=== PATIENT | female | born 1965 | race Caucasian/White ===

== ENCOUNTER → 2021-04-01 07:04 | Outpatient (CLI) | payer BC, SELFPAY ==
[2021-04-01 08:16] LABS: Add Manual Diff / Slide Review NO; Basophils Absolute Auto 0 /uL (0-100); Basophils Percent Auto 0.8 % (0-2); Eosinophils Absolute Auto 200 /uL (0-450); Eosinophils Percent Auto 4.2 % (2-4); Hematocrit 39.2 % (36-46); Hemoglobin 12.8 g/dL (12.0-16.0); Lymphocytes Absolute Auto 1400 /uL (1100-4500); Lymphocytes Percent Auto 26.3 % (25-40); Mean Corpuscular HGB Conc 32.5 % (30-36); Mean Corpuscular Hemoglobin 29.2 PG (26-34); Mean Corpuscular Volume 89.6 fL (80-100); Monocytes Absolute Auto 500 /uL (0-900); Monocytes Percent Auto 9.3 % (3-14); Neutrophils Absolute Auto 3200 /uL (1500-7000); Neutrophils Percent Auto 59.4 % (50-75); Platelet Count 218 X10^3/uL (150-400); Red Blood Cell Count 4.37 X10^6/uL (4.0-5.2); Red Cell Distribution Width 13.9 % (11.6-14.8); White Blood Cell Count 5.5 X10^3/uL (4.5-11.0)
[2021-04-01 08:37] LABS: Hemoglobin A1C% w Est Avg Glu 5.6 % (4.0-6.0)
[2021-04-01 08:52] LABS: Alanine Aminotransferase 23 IU/L (<35); Albumin 4.2 g/dL (3.5-5.0); Albumin Globulin Ratio 1.4 (1.0-2.8); Alkaline Phosphatase 64 U/L (38-126); Aspartate Aminotransferase 38 IU/L (14-36); BUN Creatinine Ratio 18.8 (6-22); Bilirubin Total 0.8 mg/dL (0.2-1.3); Blood Urea Nitrogen 13 mg/dL (7-17); Calcium 8.9 mg/dL (8.4-10.2); Carbon Dioxide 29 mmol/L (22-32); Chloride 104 mmol/L (98-107); Cholesterol 209 mg/dL (140-199); Estimated Glomerular Filt Rate > 60.0 mL/min (>60); Globulin 3.1 g/dL (1.7-4.1); Glucose 86 mg/dL (70-100); HDL Cholesterol 68 mg/dL (40-60); HEMOLYSIS < 15 (0-50); LDL Cholesterol Calculated 123 mg/dL (<100); Potassium 4.1 mmol/L (3.4-5.1); Sodium 138 mmol/L (137-145); Total Protein 7.3 g/dL (6.3-8.2); Triglycerides 88 mg/dL (35-150)
[2021-04-01 09:09] LABS: TSH w/ Reflex to FT4 3.14 uIU/mL (0.47-4.68)
--- OUTSIDE RECORDS SUMMARY | 2021-05-16 08:51 | XMS_ITS | Referral Summary ---
:1965 Author Organization Address [address] [place] [id number] Care Team Providers Name Role Phone Guillaume Holden Primary Care Provider Reason for Referral Consultation (Routine) - Authorized Specialty Diagnoses / Procedures Referred By Contact Refer red To Contact Diagnoses Mild persistent asthma without complication Lisa Lake, [facility] Procedures Complete PFT with DLCO [address] [facility] [address] [place] [address] [place] [phone] Phone: Referral ID Status Reason Start Date Expiration Date Visits V isits Requested Authorized [id number] Authorized 05/02/2021 04/27/2022 1 1 Reason for Visit Reason Comments Asthma Consultation (Routine) - Closed Specialty Diagnoses / Procedures Referred By Contact Refer red To Contact Pulmonology Diagnoses Unspecified asthma, uncomplicated Guillaume Holden ARNP [facility] Pulmonology [address] [place] [address] [place], [place] [id number] [place] [phone] Phone: Fax: Referral ID Status Reason Start Date Expiration Date Visits Requ ested Visits Authorized [id number] Closed 03/29/2021 03/24/2022 1 1 Encounter Details Date Type Department Care Team Description 05/02/2021 Office Visit [facility] Lisa Lake persi stent asthma Clinics Pulmonology D., DO without complication [place] [address] [place] (Primary Dx) [address] [place] [id number] Allergies Active Allergy Reactions Severity Noted Date Comments Sulfa (Sulfonamide Antibiotics) Rash Low 1 documented as of this encounter (statuses as of 05/13/2021) Medications Medication Sig Dispensed Refills Start Date End Date Status escitalopram 10 mg daily 0 04/18/2021 Acti ve (LEXAPRO) 10 mg tablet fluticasone Inhale 1 puff daily 0 Active propion-salmeteroL Rinse mouth with (ADVAIR DISKUS) water after use to 100-50 mcg/dose reduce aftertaste diskus inhaler and incidence of candidiasis. Do not swallow. albuterol HFA Inhale 2 puffs 0 A ctive (ProAir) 90 every 6 (six) hours mcg/actuation inhaler as needed for wheezing Hospital, Clinic, Ordered Route Frequency Start End Date [facility] or Other Facility Dose Date Administered Medication pneumococcal 0.5 mL IM During 05/02/20 Discont inued polysaccharide hospitalization 1 21 (PNEUMOVAX 23) 25 mcg/0.5 mL vaccine 0.5 mL documented as of this encounter (statuses as of 05/13/2021) Active Problems Problem Noted Date Mild persistent asthma without complication 05/02/2021 documented as of this encounter (statuses as of 05/13/2021) Immunizations Name Administration Dates Next Due Influenza, Quadrivalent 05/19/2020 [id number] Vaccine 10/20/2020, 09/29/2020 Pneumococcal Conjugate PCV13 ([id number]) 05/02/2021, 021 documented as of this encounter Social History Tobacco Use Types Packs/Day Years Used Date Passive Smoke Exposure - Never Smoker Cigarettes 18 Smokeless Tobacco: Never Used Alcohol Use Standard Drinks/Week Comments Yes 4 (1 standard drink = 0.6 oz pure alcoho l) Sex Assigned at Date Recorded Female 04/13/2021 3:02 PM PDT Job Start Date Occupation Industry Not on file Not on file Not on file documented as of this encounter Last Filed Vital Signs Vital Sign Reading Time Taken Comments Blood Pressure 104/69 05/02/2021 2:54 PM PDT Pulse 63 05/02/2021 2:54 PM PDT Temperature 36.9 ??C (98.4 ??F) 05/02/2021 2:54 PM PDT Respiratory Rate - - Oxygen Saturation 98% 05/02/2021 2:54 PM PDT Inhaled Oxygen Concentration - - Weight 78.3 kg (172 lb 9.6 oz) 05/02/2021 2:54 PM PDT Height 180.3 cm (5' 11) 05/02/2021 2:54 PM PDT Body Mass Index 24.07 05/02/2021 2:54 PM PDT documented in this encounter Progress Notes Lisa Lake DO - 05/02/2021 3:00 PM PDT Peak flow goal 330-450 L/min Use the Wixela as needed for now Use the Albuterol as a rescue inhaler (quick acting) If you have not heard from [facility] about scheduling your PFTs by the end of next week, call our office. Follow up after PFTs Get the influenza vaccine GREEN (80 to 100 percent of personal best) signals all clear. When readings are within this range and symptoms are not present, the patient is advised to adhere to his or her regular maintenance regimen. YELLOW (50 to 80 percent of personal best) signals caution, since the airways are somewhat obstructed. The patient should implement the treatment plan decided upon with the clinician to reverse airway narrowing and regain control [29]. The wide range represented by the yellow zone can be subdivided above and below the 65 percent level if desired. RED (below 50 percent of personal best) signals medical alert. Bronchodilator therapy should be started immediately, and the clinician should be contacted if PEF measures do not return immediately tothe yellow or green zones. isa Lake DO - 05/02/2021 3:00 PM PDT OUTPATIENT PULMONARY CONSULTATION NOTE Date of service: 05/02/21 IMPRESSION and RECOMMENDATIONS: SHAMA SANCHEZ is a 55 y.o. female is being seen as an initial consultation at the request of STACEY Bustos. She presents to the pulmonary clinic for evaluation of asthma. Diagnosis Plan 1. 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 We will request records. PFTs ordered, would like performed at [facility] -Currently well controlled. She is using Wixela on an as-needed basis and rarely needs her albuterol. We discussed a stepwise approach to the treatment of asthma, and while her symptoms are in the mild intermittent category, depending on what her PFTs show she may be more severe which would require a djustment of her medication dose and or frequency. -Contributing factors and triggers include environmental smoke. We discussed trigger avoidance. -Most recent exacerbation was over 5 years ago. -Peak flow meter discussed and provided. Goal 330???450 L/min -Asthma action plan discussed -Discussed importance of COVID, influenza and pneumonia vaccinations. Will get influenza vaccine this fall. Will give pneumovax today. Up to date on Covid vaccine. -Follow up after PFTs. SUBJECTIVE: Chief Concern: Chief Complaint Patient presents with ??? Asthma History of present illness: Shama Sanchez is a 55 y.o. female with past medical history significant for asthma, anxiety anddepression who presents today for evaluation of asthma. She was previously followed by Dr Briseno in [place], [place]. She started seeing Dr. Briseno about 4 years ago after she was told she had a very abnormal breathing study at a work fare. This was confirmed that she had obstruction on her PFTs. Currently on Wixela 100-50 but using this just as needed. It was initially prescribed to be used once daily. While she does have an albuterol inhaler, she thinks she used it 3 times in the past year. Dyspnea on exertion: No Chronic cough: No Wheezing: No Triggers: Yes, smoke, dusts Nighttime awakenings: No Recent hospitalizations for breathing: No Recent exacerbations requiring steroids: No. Last exacerbation was 5-6 years ago. History of ICU admission or intubation for breathing: No Pets: Yes, 2 dogs Recent Travel: No. Moved from [place] in February 2020. Born in [place], [place] Environmental/occupational exposures: No Smoking history: No Vaping: No Marijuana or other illicit substance use: No Passive smoke inhalation: Yes, mother smoked when she was a child Allergic symptoms: Yes, itchy eyes Prior medications: Breo, Advair Past medical history: Past Medical History: Diagnosis Date ??? Anxiety ??? Asthma Past surgical history: Past Surgical History: Procedure Laterality Date ??? KNEE ARTHROSCOPY Bilateral x3 ??? KNEE SURGERY Bilateral x3 Social history: Social History Socioeconomic History ??? Marital status: Significant Other Spouse name: Not on file ??? Number of children: Not on file ??? Years of education: Not on file ??? Highest education level: Not on file Occupational History ??? Not on file Tobacco Use ??? Smoking status: Passive Smoke Exposure - Never Smoker ??? Smokeless tobacco: Never Used Vaping Use ??? Vaping Use: Never used Substance and Sexual Activity ??? Alcohol use: Yes Alcohol/week: 4.0 - 6.0 standard drinks Types: 4 - 6 Glasses of wine per week ??? Drug use: Yes Types: Marijuana Comment: edibles/1 per month ??? Sexual activity: Defer Other Topics Concern ??? Not on file Social History Narrative ??? Not on file Social Determinants of Health Financial Resource Strain: ??? Difficulty of Paying Living Expenses: Food Insecurity: ??? Worried About Running Out of Food in the Last Year: ??? Ran Out of Food in the Last Year: Transportation Needs: ??? Lack of Transportation (Medical): ??? Lack of Transportation (Non-Medical): Physical Activity: ??? Days of Exercise per Week: ??? Minutes of Exercise per Session: Stress: ??? Feeling of Stress : Social Connections: ??? Frequency of Communication with Friends and Family: ??? Frequency of Social Gatherings with Friends and Family: ??? Attends Mandaeism Services: ??? Active Member of Clubs or Organizations: ??? Attends Club or Organization Meetings: ??? Marital Status: Intimate Partner Violence: ??? Fear of Current or Ex-Partner: ??? Emotionally Abused: ??? Physically Abused: ??? Sexually Abused: Family history: Family History Problem Relation Age of Onset ??? Diabetes Sister ??? Emphysema Maternal Grandfather Review of systems: 10 point review of systems is negative except as mentioned above in history of present illness OBJECTIVE: Medications reviewed Current Outpatient Medications: ??? albuterol HFA (ProAir) 90 mcg/actuation inhaler, Inhale 2 puffs every 6 (six) hours as needed for wheezing, Disp: , Rfl: ??? escitalopram (LEXAPRO) 10 mg tablet, 10 mg daily, Disp: , Rfl: ??? fluticasone propion-salmeteroL (ADVAIR DISKUS) 100-50 mcg/dose diskus inhaler, Inhale 1 puff daily Rinse mouth with water after use to reduce aftertaste and incidence of candidiasis. Do not swallow., Disp: , Rfl: Current Facility-Administered Medications: ??? pneumococcal polysaccharide (PNEUMOVAX 23) 25 mcg/0.5 mL vaccine 0.5 mL, 0.5 mL, intramuscular,During hospitalization, Lisa Lake DO Physical Exam: BP 104/69 (BP Location: Left arm, Patient Position: Sitting) Pulse 63 Temp 36.9 ??C (98.4 ??F)(Oral) Ht 1.803 m Wt 78.3 kg SpO2 98% BMI 24.07 kg/m?? General: Alert, pleasant and in no distress. Well nourished Neck: Supple HEENT: No scleral icterus. Wearing mask Chest: Normal respiratory effort at rest. Clear to auscultation. Heart: Regular rate and rhythm. No murmur. No lower extremity edema Abdomen: Soft, thin Skin: No rashes on exposed skin. No jaundice Extremities: No cyanosis, clubbing, joint swelling or erythema Neuro: Alert, oriented, no focal deficits, speech fluent Psych: Normal mood and affect Studies: Labs: None Pulmonary function tests: Personally Reviewed Ordered Imaging: Personally Reviewed None Cardiac Diagnostics: None PLEASE REFER TO THE TOP OF THIS NOTE FOR ASSESSMENT AND RECOMMENDATIONS Thank you for allowing me to participate in the patient's care. If you have any questions, please do not hesitate to contact me. Lisa Lake DO [facility] Pulmonary, Critical Care and Sleep Medicine documented in this encounter Miscellaneous Notes Addendum Note - Ta Grande RN - 05/02/2021 3:00 PM PDT Addended by: TA GRANDE on: 05/03/2021 09:00 AM Modules accepted: Orders documented in this encounter Plan of Treatment Scheduled Orders Name Type Priority Associated Diagnoses Order S chedule Complete PFT with DLCO PFT Routine Mild persistent as thma 1 Occurrences starting without complication 021 until 05/02/2022 documented as of this encounter Visit Diagnoses Diagnosis Mild persistent asthma without complicat ion - Primary documented in this encounter Insurance Payer Benefit Plan / Subscriber ID Effective Dates Phone Addre ss Type Group [facility] [id number] 2020-Present [phone] [address] [address] [place] [address] documented as of this encounter Advance Directives Documents on File Type Date Recorded Patient Information Systems Analyst Explanati on Advance Directives and Living Will Care Teams Radiological Metallurgist Relationship Specialty Start Date End Date Guillaume Holden ARNP PCP - General Nurse Practitioner 03/29/21 [address] [place], [place] [phone] documented as of this encounter
== END ==
PROVIDERS: PCP Registered Nurse; Referring Provider Registered Nurse; Visit Provider Registered Nurse
DX: F41.8 Other specified anxiety disorders (principal); R73.03 Prediabetes; Z00.00 Encounter for general adult medical examination without abnormal findings
CPT/HCPCS: 36415; 80053; 80061; 83036; 84443; 85025

== ENCOUNTER → 2021-05-19 11:02 | Outpatient (CLI) | payer BC, SELFPAY ==
[2021-05-19 12:44] LABS: COVID19 -Nasal RAPID Negative (Negative)
== END ==
PROVIDERS: PCP Registered Nurse; Referring Provider Internal Medicine; Visit Provider Internal Medicine
DX: Z20.822 Contact with and (suspected) exposure to COVID-19 (principal)
CPT/HCPCS: 87635; C9803

== ENCOUNTER → 2021-05-20 12:52 | Outpatient (CLI) | payer BC, SELFPAY ==
--- NOTE | 2021-05-25 08:21 | PM.PFT.1 ---
Pulmonary Function Test Referral & Results Date Patient Seen: 05/20/21 Requesting provider: Lisa Lake Results: The spirometry demonstrates an FVC of 4.11 L which is 96% of predicted. The FEV1 was measured at 2.26 L which is 60% of predicted. The FEV1/FVC ratio was 55 which is 69% of predicted. Following the administration of bronchodilator there was a 22% improvement in FEV1 and an 82% improvement in FEF 25-75% Lung volumes show an SVC of 3.95 L which is 103% of predicted. The diffusing capacity was measured at 22.04 which is 65% of predicted. No hemoglobin value was provided, so no correction for potential anemia could be made, if appropriate. The maximum voluntary ventilation was minimally reduced Interpretation: This study demonstrates mild to moderate obstructive lung disease based on reduction FEV1. There is evidence of significant benefit following bronchodilator as above. There is also a [id number] reduction diffusing capacity suggesting disease at the capillary alveolar level, unless patient is anemic as above Clinical correlation suggested
== END ==
PROVIDERS: PCP Registered Nurse; Referring Provider Specialist; Visit Provider Specialist
DX: J45.30 Mild persistent asthma, uncomplicated (principal)
CPT/HCPCS: 94060; 94726; 94729

== ENCOUNTER → 2021-10-31 15:47 | Outpatient (CLI) | payer BC, SELFPAY ==
--- NOTE | 2021-10-31 15:48 | DI.RAD.S_ITS ---
PROCEDURE: XR FINGER LT MIN 2V INDICATIONS: left thumb injury TECHNIQUE: AP hand, 2 views of the left 1st finger(s) acquired. COMPARISON: None. FINDINGS: Bones: No fractures or dislocations. No suspicious bony lesions. Soft tissues: No suspicious soft tissue calcifications. IMPRESSION: No acute radiographic findings. If pain persists, followup imaging in 5-7 days is recommended to exclude occult fracture. Dictated by: Serena Marvin M.D. on 10/31/2021 at 16:10 Approved by: Serena Marvin M.D. on 10/31/2021 at 16:10
== END ==
PROVIDERS: Referring Provider Nurse Practitioner Family; Visit Provider Nurse Practitioner Family
DX: S69.92XA Unspecified injury of left wrist, hand and finger(s), initial encounter (principal); X58.XXXA Exposure to other specified factors, initial encounter
CPT/HCPCS: 73140

== ENCOUNTER 2022-07-24 19:13 | Emergency (ER) | payer BC, SELFPAY ==
[2022-07-24 20:04] VITALS: BP 120/58; PULSE 63; RESP 16; TEMP 36.9; O2SAT 96; BMI 24.3
== END 2022-07-24 22:18 | disposition left against medical advice (07) ==
PROVIDERS: Emergency Provider Emergency Medicine; PCP Pediatrics
CPT/HCPCS: 99281

== ENCOUNTER → 2023-01-29 16:19 | Outpatient (CLI) | payer OTHER, MEDICAID, SELFPAY ==
[2023-01-29 17:57] LABS: Add Manual Diff / Slide Review NO; Basophils Absolute Auto 100 /uL (0-100); Basophils Percent Auto 1.4 % (0-2); Eosinophils Absolute Auto 300 /uL (0-450); Eosinophils Percent Auto 5.6 % (2-4); Hematocrit 36.4 % (36-46); Hemoglobin 12.3 g/dL (12.0-16.0); Lymphocytes Absolute Auto 1800 /uL (1100-4500); Lymphocytes Percent Auto 30.6 % (25-40); Mean Corpuscular HGB Conc 33.7 % (30-36); Mean Corpuscular Hemoglobin 29.8 PG (26-34); Mean Corpuscular Volume 88.3 fL (80-100); Monocytes Absolute Auto 500 /uL (0-900); Monocytes Percent Auto 8.7 % (3-14); Neutrophils Absolute Auto 3100 /uL (1500-7000); Neutrophils Percent Auto 53.7 % (50-75); Platelet Count 215 X10^3/uL (150-400); Red Blood Cell Count 4.13 X10^6/uL (4.0-5.2); White Blood Cell Count 5.8 X10^3/uL (4.5-11.0)
[2023-01-29 18:14] LABS: Alanine Aminotransferase 35 IU/L (<35); Albumin 4.3 g/dL (3.5-5.0); Albumin Globulin Ratio 1.3 (1.0-2.8); Alkaline Phosphatase 70 U/L (38-126); Aspartate Aminotransferase 43 IU/L (14-36); BUN Creatinine Ratio 19.8 (6-22); Bilirubin Total 0.7 mg/dL (0.2-1.3); Blood Urea Nitrogen 17 mg/dL (7-17); Carbon Dioxide 32 mmol/L (22-32); Chloride 101 mmol/L (98-107); Cholesterol 214 mg/dL (140-199); Estimated Glomerular Filt Rate > 60 mL/min (>60); Globulin 3.2 g/dL (1.7-4.1); Glucose 87 mg/dL (70-100); HDL Cholesterol 87 mg/dL (40-60); HEMOLYSIS < 15 (0-50); LDL Cholesterol Calculated 98 mg/dL (<100); Potassium 3.9 mmol/L (3.4-5.1); Sodium 138 mmol/L (137-145); Total Protein 7.5 g/dL (6.3-8.2); Triglycerides 147 mg/dL (35-150)
[2023-01-29 18:17] LABS: High Sensitivity CRP - Cardiac 1.6 mg/L (1.0-3.0)
[2023-01-29 18:39] LABS: Vitamin D 25 Hydroxy (D3) 43.8 ng/mL (30.0-100.0)
== END ==
PROVIDERS: PCP Family Medicine; Referring Provider Family Medicine; Visit Provider Family Medicine
DX: E78.5 Hyperlipidemia, unspecified (principal); J45.909 Unspecified asthma, uncomplicated; F41.8 Other specified anxiety disorders; E55.9 Vitamin D deficiency, unspecified
CPT/HCPCS: 36415; 80053; 80061; 82306; 85025; 86140

== ENCOUNTER 2023-07-02 16:59 | Emergency (ER) | payer OTHER, MEDICAID, SELFPAY ==
[2023-07-02 17:24] VITALS: BP 110/70; PULSE 64; RESP 16; TEMP 37.2; O2SAT 99; BMI 22.2
--- NOTE | 2023-07-02 18:04 | DI.CT.S_ITS ---
PROCEDURE: CT CERVICAL SPINE WO CON INDICATIONS: fall TECHNIQUE: Noncontrast 3 mm thick sections acquired from the skull base to the T4 level. Sagittal and coronal reformats were then constructed. For radiation dose reduction, the following was used: automated exposure control, adjustment of mA and/or kV according to patient size. COMPARISON: None. FINDINGS: Image quality: Excellent. Bones: No fractures or dislocations. Mild degenerative endplate changes are noted throughout cervical spine. No significant central canal stenosis is seen. Visualized superior ribs are intact. Soft tissues: Prevertebral soft tissues are normal in thickness. No paravertebral hematomas. No apical pneumothoraces. IMPRESSION: 1. No acute cervical spine fracture or dislocation. 2. Mild degenerative disc disease throughout cervical spine. Dictated by: Osvaldo Price M.D. on 07/02/2023 at 18:57 Approved by: Osvaldo Price M.D. on 07/02/2023 at 18:58
--- NOTE | 2023-07-02 18:04 | DI.CT.S_ITS ---
PROCEDURE: CT HEAD/BRAIN WO CON INDICATIONS: fall TECHNIQUE: Noncontrast 4.5 mm thick angled axial sections acquired from the foramen magnum to the vertex, with coronal and sagittal reformats. For radiation dose reduction, the following was used: automated exposure control, adjustment of mA and/or kV according to patient size. COMPARISON: None. FINDINGS: Image quality: Excellent. CSF spaces: Basal cisterns are patent. No extra-axial fluid collections. Ventricles are normal in size and shape. Brain: No midline shift. No intracranial masses or hemorrhage. Seay-white matter interface is normal. Skull and face: Calvarium and visualized facial bones are intact, without suspicious lesions. Sinuses: Visualized sinuses and mastoids are clear. IMPRESSION: No acute intracranial pathology. Dictated by: Osvaldo Price M.D. on 07/02/2023 at 18:56 Approved by: Osvaldo Price M.D. on 07/02/2023 at 18:57
--- NOTE | 2023-07-02 18:49 | ED.HEATRA ---
HPI - Head Injury <Livia Smith PA-C - Last Filed: 07/02/23 19:08> General Chief complaint: Head Injury Stated complaint: glf in the [place]id, hit her head neck and back. Time Seen by Provider: 07/02/23 17:57 Source: patient Mode of arrival: Ambulatory History of Present Illness HPI Narrative: 57-year-old female with past medical history hyperlipidemia, asthma, anxiety presents to the ED status post a mechanical fall sustained prior to arrival. Patient was walking her dog, her dog tripped her on the leash causing her to fall backwards and striking the back of her head. No loss of consciousness. Patient is not on blood thinners. Patient endorses headache, neck pain, upper back pain. Patient is endorsing some nausea. Denies vomiting, chest pain, shortness of breath, lightheadedness, dizziness. Related Data Previous Rx's Medication Instructions Recorded albuterol sulfate 90 mcg/actuation 2 puff inhalation Q4-6H PRN 01/08/23 aerosol inhaler (Ventolin HFA) shortness of breath or wheezing #6.7 grams fluticasone 100 mcg-salmeterol 50 1 inh inhalation Q12H #60 ea 01/08/23 mcg/dose blistr powdr for inhalation (Wixela Inhub) nirmatrelvir 300 mg (150 mg See Rx Instructions PO .COMPLEX 04/13/23 x2)-ritonavir 100 mg tablet,dose #30 ea pack (Paxlovid) escitalopram oxalate 10 mg tablet 10 mg PO DAILY #90 tabs 05/24/23 Allergies Allergy/AdvReac Type Severity Reaction Status Date / Time Sulfa (Sulfonamide AdvReac Severe Rash Verified 01/08/23 09:06 Antibiotics) Review of Systems <Livia Smith PA-C - Last Filed: 07/02/23 19:08> Constitutional Constitutional: Denies chills, Denies fatigue, Denies fever(s), Denies frequent falls, Reports headache(s), Denies lethargy and Denies weakness Eyes Eyes: Denies change in vision, Denies eye discharge, Denies irritation and Denies loss of vision ENT Ears, Nose, Mouth, and Throat: Denies change in voice, Denies dizziness, Reports headache(s), Reports neck pain, Denies sore throat and Denies throat swelling Cardiovascular Cardiovascular: Denies chest pain, Denies irregular heart rhythm, Denies lightheadedness, Denies palpitations, Denies dyspnea, Denies dyspnea on exertion and Denies orthopnea Respiratory Respiratory: Denies cough, Denies dyspnea, Denies dyspnea on exertion and Denies wheezing Gastrointestinal Gastrointestinal: Denies abdominal pain, Denies change in bowel habits, Denies diarrhea, Reports nausea and Denies vomiting Musculoskeletal Musculoskeletal: Reports back pain, Reports neck pain and Denies numbness Integumentary/Breasts Skin/Breast: Denies pruritus, Denies erythema, Denies rash and Denies wounds Neurologic Neurologic: Denies behavioral changes, Denies confusion, Denies dizziness, Denies frequent falls, Reports headache(s), Denies loss of vision, Denies numbness and Denies weakness Psychiatric Psychiatric: Denies anxiety, Denies behavioral changes, Denies confusion, Denies depression, Denies homicidal ideation and Denies suicidal ideation Endocrine Endocrine: Denies fatigue, Denies flushing and Denies palpitations Hematologic/Lymphatic Hematologic/Lymphatic: Denies easy bruising Allergic/Immunologic Allergic/Immunologic: Denies urticaria, Denies throat swelling and Denies wheezing Patient History <Livia Smith PA-C - Last Filed: 07/02/23 19:08> Medical History COVID-19 (~03/2023) Social History Smoking Status: Never smoker alcohol intake: current substance use type: does not use Smoking Status: Never smoker alcohol intake frequency: a few times a week Substance Use Type: marijuana Exam <Livia Smith PA-C - Last Filed: 07/02/23 19:08> Narrative Exam Narrative: Const General:?cooperative, healthy appearing and comfortable [facility] Head:?normal to inspection; skin is intact; no skull depressions; no signs of basilar skull fracture Ears:?hearing grossly normal bilaterally Nose:?external nose normal Face and sinus:?normal facial exam and sinuses nontender Mouth:?oral mucosae normal Throat:?posterior oropharynx normal Eyes General:?appearance normal, both eyes and all related structures Neck Neck:?normal visual inspection and no lymphadenopathy noted Resp Effort & Inspection:?normal respiratory effort Auscultation:?clear to auscultation bilaterally Cardio Rate:?regular rate Rhythm:?regular rhythm Musculoskeletal No midline tenderness to palpation; no paraspinal tenderness to palpation. There is full range of motion. Strength and sensation is intact. Gait is normal. Patient is neurovascularly intact. Neuro General:?patient alert, patient awake and patient oriented x3 Initial Vital Signs Initial Vital Signs: Vital Signs Temperature 98.9 F 07/02/23 17:24 Pulse Rate 64 07/02/23 17:24 Respiratory Rate 16 07/02/23 17:24 Blood Pressure 110/70 07/02/23 17:24 Pulse Oximetry 99 07/02/23 17:24 Oxygen Delivery Method Room Air 07/02/23 17:24 <Spencer Soriano MD - Last Filed: 07/03/23 01:35> Initial Vital Signs Initial Vital Signs: Vital Signs Temperature 98.9 F 07/02/23 17:24 Pulse Rate 64 07/02/23 17:24 Respiratory Rate 16 07/02/23 17:24 Blood Pressure 110/70 07/02/23 17:24 Pulse Oximetry 99 07/02/23 17:24 Oxygen Delivery Method Room Air 07/02/23 17:24 Course <Livia Smith PA-C - Last Filed: 07/02/23 19:08> Orders Ordered: ED Orders 07/02/23 18:04 CT cervical spine wo con Stat CT head/brain wo con Stat Vital Signs Vital signs: Vital Signs - 8 hr 07/02/23 17:24 Temperature 98.9 F Pulse Rate 64 Respiratory Rate 16 Blood Pressure 110/70 Pulse Oximetry 99 Oxygen Delivery Method Room Air <Spencer Soriano MD - Last Filed: 07/03/23 01:35> Orders Ordered: ED Orders 07/02/23 18:04 CT cervical spine wo con Stat CT head/brain wo con Stat Vital Signs Vital signs: Vital Signs - 8 hr 07/02/23 17:24 Temperature 98.9 F Pulse Rate 64 Respiratory Rate 16 Blood Pressure 110/70 Pulse Oximetry 99 Oxygen Delivery Method Room Air MDM - Head Injury <Livia Smith PA-C - Last Filed: 07/02/23 19:08> MDM Narrative Medical decision making narrative: 57-year-old female with past medical history hyperlipidemia, asthma, anxiety presents to the ED status post a mechanical fall sustained prior to arrival. Concern for intracranial bleeds versus fractures/dislocation versus musculoskeletal sprain/strain versus concussion versus other. Will obtain CT head, CT C-spine. Will reassess. Patient declined Zofran. Patient did take some ibuprofen prior to presenting to the ED. declined any other pain medication. CT C-spine and CT head without acute findings. Discussed findings with patient. Counseled patient on signs of concussion. Recommend follow-up with PCP as soon as possible. ED return precautions discussed with patient. Patient verbalized understanding. Medical records reviewed: Yes <Spencer Soriano MD - Last Filed: 07/03/23 01:35> Imaging Data CT scan - head: Radiologist's Impression: IMPRESSION: No acute intracranial pathology. Dictated by: Osvaldo Price M.D. on 07/02/2023 at 18:56 Approved by: Osvaldo Price M.D. on 07/02/2023 at 18:57 CT - cervical spine: Radiologist's Impression: IMPRESSION: 1. No acute cervical spine fracture or dislocation. 2. Mild degenerative disc disease throughout cervical spine. Dictated by: Osvaldo Price M.D. on 07/02/2023 at 18:57 Approved by: Osvaldo Price M.D. on 07/02/2023 at 18:58 Discharge Plan Departure Patient Disposition: Home Clinical Impression: Closed head injury Instructions: DI for Closed Head Injury Activity Restrictions/Additional Instructions: You were evaluated in the ED today following a head injury. Your CT head and CT neck were normal. You may continue to take Tylenol, ibuprofen for your symptoms. It is normal to feel headaches and sporadic nausea after a closed head injury. It is recommended that you rest well to recover from the injury. Please follow-up with your PCP as soon as possible. Return to the ED if you have worsening symptoms, persistent vomiting. Prescriptions: No Action escitalopram oxalate 10 mg tablet 10 mg PO DAILY Qty: 90 0RF Paxlovid 300 mg (150 mg x 2)-100 mg tablets,dose pack See Rx Instructions PO .COMPLEX Qty: 30 0RF Rx Instructions: take TWO 150 mg tablets of nirmatrelvir with ONE 100 mg tablet of ritonavir twice daily for 5 days PO fluticasone propion-salmeterol [Wixela Inhub] 100-50 mcg/dose blister with device 1 inh inhalation Q12H Qty: 60 6RF albuterol sulfate [Ventolin HFA] 90 mcg/actuation HFA aerosol inhaler 2 puff inhalation Q4-6H PRN (Reason: shortness of breath or wheezing) Qty: 6.7 6RF Referrals: Kenna Tilley DO [Primary Care Provider] - Stand Alone Forms: Patient Portal/API
== END 2023-07-02 19:12 | disposition home or self-care (01) ==
PROVIDERS: Emergency Provider Student in an Organized Health Care Education/Training Program; PCP Family Medicine
DX: S09.90XA Unspecified injury of head, initial encounter (principal); M54.2 Cervicalgia; W01.10XA Fall on same level from slipping, tripping and stumbling with subsequent striking against unspecified object, initial encounter; Y93.K1 Activity, walking an animal
CPT/HCPCS: 70450; 72125; 99283

== ENCOUNTER → 2024-07-03 08:05 | Outpatient (CLI) | payer OTHER, MEDICAID, SELFPAY ==
[2024-07-03 09:07] LABS: Add Manual Diff / Slide Review NO; Basophils Absolute Auto 100 /uL (0-100); Basophils Percent Auto 1.4 % (0-2); Eosinophils Absolute Auto 300 /uL (0-450); Eosinophils Percent Auto 5.3 % (2-4); Hematocrit 38.9 % (36-46); Lymphocytes Absolute Auto 2700 /uL (1100-4500); Lymphocytes Percent Auto 42.9 % (25-40); Mean Corpuscular HGB Conc 33.4 % (30-36); Mean Corpuscular Hemoglobin 29.9 PG (26-34); Mean Corpuscular Volume 89.3 fL (80-100); Monocytes Absolute Auto 600 /uL (0-900); Monocytes Percent Auto 9.5 % (3-14); Neutrophils Absolute Auto 2500 /uL (1500-7000); Neutrophils Percent Auto 40.9 % (50-75); Platelet Count 248 X10^3/uL (150-400); Red Blood Cell Count 4.35 X10^6/uL (4.0-5.2); Red Cell Distribution Width 13.9 % (11.6-14.8); White Blood Cell Count 6.2 X10^3/uL (4.5-11.0)
[2024-07-03 09:35] LABS: Alanine Aminotransferase 33 IU/L (<35); Albumin Globulin Ratio 1.4 (1.0-2.8); Alkaline Phosphatase 57 U/L (38-126); Aspartate Aminotransferase 39 IU/L (14-36); BUN Creatinine Ratio 20.3 (6-22); Bilirubin Total 0.7 mg/dL (0.2-1.3); Blood Urea Nitrogen 15 mg/dL (7-17); Carbon Dioxide 31 mmol/L (22-32); Chloride 102 mmol/L (98-107); Cholesterol 225 mg/dL (140-199); Estimated Glomerular Filt Rate > 60 mL/min (>60); Globulin 2.9 g/dL (1.7-4.1); Glucose 78 mg/dL (80-110); HDL Cholesterol 91 mg/dL (40-60); HEMOLYSIS < 15 (0-50); LDL Cholesterol Calculated 122 mg/dL (<100); Potassium 3.8 mmol/L (3.4-5.1); Sodium 137 mmol/L (137-145); Total Protein 6.9 g/dL (6.3-8.2); Triglycerides 62 mg/dL (35-150)
[2024-07-03 09:50] LABS: Vitamin D 25 Hydroxy (D3) 35.8 ng/mL (30.0-100.0)
[2024-07-03 10:04] LABS: TSH w/ Reflex to FT4 3.54 uIU/mL (0.47-4.68)
== END ==
PROVIDERS: PCP Family Medicine; Referring Provider Family Medicine; Visit Provider Family Medicine
DX: H81.10 Benign paroxysmal vertigo, unspecified ear (principal); E78.5 Hyperlipidemia, unspecified; R74.01 Elevation of levels of liver transaminase levels; F41.8 Other specified anxiety disorders; Z78.0 Asymptomatic menopausal state
CPT/HCPCS: 36415; 80053; 80061; 82306; 84443; 85025

== ENCOUNTER → 2024-09-29 06:59 | Outpatient (CLI) | payer OTHER, SELFPAY ==
[2024-09-29 08:06] LABS: Alanine Aminotransferase 30 IU/L (<35); Albumin 4.3 g/dL (3.5-5.0); Albumin Globulin Ratio 1.5 (1.0-2.8); Alkaline Phosphatase 61 U/L (38-126); Aspartate Aminotransferase 41 IU/L (14-36); BUN Creatinine Ratio 16.7 (6-22); Bilirubin Total 0.9 mg/dL (0.2-1.3); Blood Urea Nitrogen 12 mg/dL (7-17); Calcium 9.4 mg/dL (8.4-10.2); Carbon Dioxide 26 mmol/L (22-32); Chloride 105 mmol/L (98-107); Cholesterol 229 mg/dL (140-199); Estimated Glomerular Filt Rate > 60 mL/min (>60); Globulin 2.8 g/dL (1.7-4.1); Glucose 104 mg/dL (80-110); HDL Cholesterol 82 mg/dL (40-60); HEMOLYSIS < 15 (0-50); LDL Cholesterol Calculated 128 mg/dL (<100); Potassium 4.4 mmol/L (3.4-5.1); Sodium 139 mmol/L (137-145); Total Protein 7.1 g/dL (6.3-8.2); Triglycerides 93 mg/dL (35-150)
[2024-09-29 08:34] LABS: Thyroid Stimulating Hormone 3.14 uIU/mL (0.47-4.68)
== END ==
PROVIDERS: PCP Family Medicine; Referring Provider Family Medicine; Visit Provider Family Medicine
DX: E03.8 Other specified hypothyroidism (principal); R74.01 Elevation of levels of liver transaminase levels
CPT/HCPCS: 36415; 80053; 80061; 84443

== ENCOUNTER → 2025-03-02 07:05 | Outpatient (CLI) | payer OTHER, SELFPAY ==
[2025-03-02 08:12] LABS: TSH w/ Reflex to FT4 1.35 uIU/mL (0.47-4.68)
[2025-03-03 03:40] LABS: CRP, High Sensitivity 2.40 mg/L (0.00-3.00)
== END ==
PROVIDERS: PCP Family Medicine; Referring Provider Family Medicine; Visit Provider Family Medicine
DX: E03.8 Other specified hypothyroidism (principal); E78.5 Hyperlipidemia, unspecified
CPT/HCPCS: 36415; 84443; 86140